=== PATIENT | male | born 1970 | race Caucasian/White ===

== ENCOUNTER 2020-03-30 18:40 | Observation (INO) ==
[2020-03-30 20:36] LABS: Prothrombin Time 11.1 Seconds (9.4-12.1)
[2020-03-30 20:38] LABS: Activated Partial Thrombo Time 36.5 Seconds (26.0-36.0)
[2020-03-30 20:40] LABS: Basophils % 0.5 %; Eosinophils # 0.4 K/mcL (0.0-0.6); Eosinophils % 5.9 %; Hematocrit 35.8 % (37.5-50.1); Hemoglobin 11.6 g/dL (12.9-16.9); Immature Granulocytes % 0.3 % (0-4); Lymphocytes # 1.6 K/mcL (0.6-4.6); Mean Corpuscular HGB Conc 32.4 g/dL (31.6-35.5); Mean Corpuscular Hemoglobin 29.7 pg (28.0-33.3); Mean Corpuscular Volume 91.8 fL (83.0-100.0); Mean Platelet Volume 9.2 fL (9.4-12.4); Monocytes # 0.3 K/mcL (0.0-1.3); Monocytes % 4.5 %; Neutrophils # 4.1 K/mcL (1.6-8.9); Platelet Count 244 K/mcL (140-400); Red Cell Distribution Width 13.7 % (11.5-14.5); Segmented Neutrophils % 63.8 %; White Blood Count 6.4 K/mcL (4.3-11.1)
[2020-03-30 20:44] LABS: Creatine Kinase 83 Units/L (30-223); Lipase 48 Units/L (11-82)
[2020-03-30 21:11] LABS: Bacteria,Urine Few per hpf (None-Few); Bilirubin,Urine Negative (Negative); Blood,Urine Moderate (Negative); Clarity,Urine Clear (Clear); Color,Urine Colorless (Yellow); Glucose,Urine (UA) 50 mg/dL (Normal); Ketones,Urine Negative (Negative); Leukocyte Esterase,Urine Negative (Negative); Nitrite,Urine Negative (Negative); PH,Urine 6.5 pH Units (5.0-8.0); Protein,Urine >=300 mg/dL (Neg-Trace); RBC,Urine 30-50 per hpf (0-3); Specific Gravity,Urine 1.012 (1.010-1.025); Squamous Epithelial Cell,Urine Few per hpf (None-Few); Urobilinogen,Urine Normal (Normal); WBC,Urine 0-3 per hpf (0-3)
[2020-03-30 21:18] LABS: Potassium 4.8 mEq/L (3.5-5.1); Troponin I 0.04 ng/mL (< 0.04)
[2020-03-30] MEDS ORDERED: cloNIDine HCL 0.1 MG TABLET PO ONE (22:40)
[2020-03-30] MEDS ORDERED: Furosemide 40 MG/4 ML VIAL IVP ONE (23:55)
[2020-03-31] MEDS ORDERED: Naloxone 0.4 MG/ML INJ IVP PRN ×2 (00:33→01:43)
[2020-03-31] MEDS: niCARdipine 20 MG/200 ML MLS IVC SCH ×5 (00:43→22:29)
[2020-03-31 05:09] LABS: Hemoglobin 11.3 g/dL (12.9-16.9); Mean Corpuscular HGB Conc 32.3 g/dL (31.6-35.5); Mean Corpuscular Hemoglobin 29.4 pg (28.0-33.3); Mean Corpuscular Volume 91.1 fL (83.0-100.0); Mean Platelet Volume 9.1 fL (9.4-12.4); Platelet Count 238 K/mcL (140-400); Red Blood Count 3.84 M/mcL (4.19-5.50); Red Cell Distribution Width 13.9 % (11.5-14.5); White Blood Count 7.2 K/mcL (4.3-11.1)
[2020-03-31 05:14] LABS: Albumin 3.7 g/dL (3.5-5.7); Bilirubin,Total 0.4 mg/dL (0.3-1.0); Calcium 10.4 mg/dL (8.6-10.3); Magnesium 2.4 mg/dL (1.6-2.6); Phosphorous 8.9 mg/dL (2.7-4.5); Potassium 4.3 mEq/L (3.5-5.1); Total Protein 6.5 g/dL (6.4-8.9)
[2020-03-31 05:15] LABS: Albumin/Globulin Ratio 1.3 (1.1-2.2); Globulin 2.8 g/dL (2.4-3.5)
[2020-03-31 05:30] LABS: Troponin I 0.06 ng/mL (< 0.04)
[2020-03-31] MEDS ORDERED: 0.9 % Sodium Chloride 1,000 ML ONE (07:06)
[2020-03-31] MEDS ORDERED: 0.9 % Sodium Chloride 1,000 ML PRIME SCH (07:15)
[2020-03-31] MEDS ORDERED: 0.9 % Sodium Chloride 250 ML IVC PRN (07:15)
[2020-03-31 09:19] LABS: Hepatitis B Surface Antibody 848.46 mIU/mL
[2020-03-31 09:29] LABS: Hepatitis B Surface Antigen Nonreactive (Nonreactive)
[2020-03-31] MEDS ORDERED: *HR* Alteplase (Cathflo) 2 MG VIAL IVP ONE (11:37)
[2020-03-31] MEDS ORDERED: Acetaminophen 325 MG TABLET PO PRN (11:59)
[2020-03-31] MEDS: cloNIDine HCL 0.1 MG TABLET PO SCH ×2 (12:49→20:40)
[2020-03-31] MEDS ORDERED: cloNIDine HCL 0.1 MG TABLET PO SCH (21:00)
[2020-03-31] MEDS ORDERED: *HR* Labetalol 20 MG/4 ML SYRINGE IVP ONE (23:35)
[2020-04-01] MEDS: Calcium Acetate 667 MG CAPSULE PO SCH ×4 (00:56→16:49)
[2020-04-01 05:30] LABS: Calcium 8.6 mg/dL (8.6-10.3); Potassium 4.3 mEq/L (3.5-5.1)
[2020-04-01] MEDS: cloNIDine HCL 0.1 MG TABLET PO SCH ×3 (07:53→20:09)
[2020-04-01] MEDS: NIFEdipine XL (24 HR) 60 MG TAB.ER.24 PO SCH (10:17)
[2020-04-01] MEDS ORDERED: 0.9 % Sodium Chloride 250 ML IVC PRN (11:02)
[2020-04-01] MEDS ORDERED: *HR* Heparin 10,000 UNIT/10 ML VIAL IV PRN (11:02)
[2020-04-01] MEDS: *HR* Heparin 5,000 UNIT/ML VIAL SQ SCH (20:09)
[2020-04-02] MEDS: *HR* Heparin 5,000 UNIT/ML VIAL SQ SCH (05:39)
[2020-04-02] MEDS ORDERED: 0.9 % Sodium Chloride 250 ML IVC PRN (06:53)
[2020-04-02] MEDS ORDERED: *HR* Heparin 10,000 UNIT/10 ML VIAL IV PRN (07:11)
[2020-04-02 08:46] LABS: Basophils % 0.5 %; Eosinophils # 0.6 K/mcL (0.0-0.6); Eosinophils % 9.2 %; Hematocrit 35.3 % (37.5-50.1); Hemoglobin 11.3 g/dL (12.9-16.9); Immature Granulocytes % 0.3 % (0-4); Lymphocytes % 32.3 %; Mean Corpuscular Hemoglobin 29.1 pg (28.0-33.3); Mean Platelet Volume 8.9 fL (9.4-12.4); Monocytes # 0.2 K/mcL (0.0-1.3); Monocytes % 3.4 %; Neutrophils # 3.4 K/mcL (1.6-8.9); Platelet Count 222 K/mcL (140-400); Red Blood Count 3.88 M/mcL (4.19-5.50); Red Cell Distribution Width 13.6 % (11.5-14.5); Segmented Neutrophils % 54.3 %; White Blood Count 6.2 K/mcL (4.3-11.1)
[2020-04-02] MEDS: Calcium Acetate 667 MG CAPSULE PO SCH ×2 (08:57→12:34)
[2020-04-02] MEDS ORDERED: Nicotine 21 MG PATCH.TD24 TD SCH (09:00)
[2020-04-02 09:05] LABS: Calcium 9.7 mg/dL (8.6-10.3); Magnesium 2.3 mg/dL (1.6-2.6); Phosphorous 6.7 mg/dL (2.7-4.5); Potassium 4.9 mEq/L (3.5-5.1)
[2020-04-02] MEDS ORDERED: FLU Vac QV 20-21 (6Month+)/PF 0.5 ML SYRINGE IM ONE (10:26)
[2020-04-02] MEDS: cloNIDine HCL 0.1 MG TABLET PO SCH (11:20)
[2020-04-02] MEDS: NIFEdipine XL (24 HR) 60 MG TAB.ER.24 PO SCH (11:20)
[2020-04-02 12:53] VITALS: BP 204/125
[2020-04-02 17:56] LABS: Adenovirus Not Detected (Not Detect); Bordetella Pertussis Not Detected (Not Detect); Chlamydophila pneumoniae Not Detected (Not Detect); Coronavirus 229E Not Detected (Not Detect); Coronavirus HKU1 Not Detected (Not Detect); Coronavirus NL63 Not Detected (Not Detect); Coronavirus OC43 Not Detected (Not Detect); Human Metapneumovirus Not Detected (Not Detect); Human Rhinovirus/Enterovirus Not Detected (Not Detect); Influenza A Subtype 2009 H1 Not Detected (Not Detect); Influenza B Not Detected (Not Detect); Mycoplasma pneumoniae Not Detected (Not Detect); Parainfluenza Virus 1 Not Detected (Not Detect); Parainfluenza Virus 2 Not Detected (Not Detect); Parainfluenza Virus 3 Not Detected (Not Detect); Parainfluenza Virus 4 Not Detected (Not Detect); Respiratory Syncytial Virus Not Detected (Not Detect); SARS-CoV-2 Not Detected (Not Detect)
== END 2020-04-02 13:58 | disposition home or self-care (01) ==
LOC: 2NNU 18:40 → EMEROOARM 18:40 → SUATTDRO 03-31 00:20 → 2NNU 03-31 01:11 → 2ANU 04-01 18:49
PROVIDERS: ADMIT Internal Medicine; ATTEND Pharmacist

== ENCOUNTER 2020-07-01 00:39 | Observation (INO) ==
[2020-07-01 01:32] LABS: Basophils % 0.4 %; Eosinophils # 0.6 K/mcL (0.0-0.6); Hematocrit 28.2 % (37.5-50.1); Immature Granulocytes % 0.3 % (0-4); Lymphocytes # 1.5 K/mcL (0.6-4.6); Mean Corpuscular HGB Conc 31.9 g/dL (31.6-35.5); Mean Corpuscular Hemoglobin 31.6 pg (28.0-33.3); Mean Corpuscular Volume 98.9 fL (83.0-100.0); Mean Platelet Volume 9.8 fL (9.4-12.4); Monocytes # 0.5 K/mcL (0.0-1.3); Neutrophils # 7.6 K/mcL (1.6-8.9); Platelet Count 240 K/mcL (140-400); Red Blood Count 2.85 M/mcL (4.19-5.50); Red Cell Distribution Width 14.1 % (11.5-14.5); Segmented Neutrophils % 73.3 %; White Blood Count 10.3 K/mcL (4.3-11.1)
[2020-07-01 02:02] LABS: BUN/Creatinine Ratio 4 (6-26); Blood Urea Nitrogen 30 mg/dL (6-20); Calcium 8.5 mg/dL (8.6-10.3); Carbon Dioxide 23 mEq/L (23-29); Chloride 103 mEq/L (98-107); Glucose 92 mg/dL (70-105); Magnesium 2.4 mg/dL (1.6-2.6); Osmolality,Calculated 296 (280-300); Phosphorous 7.8 mg/dL (2.7-4.5); Potassium 4.5 mEq/L (3.5-5.1); Sodium 140 mEq/L (136-145); Troponin I < 0.03 ng/mL (< 0.04); eGFR For African Americans 10 (> 60); eGFR For Non-African Americans 9 (> 60)
[2020-07-01] MEDS ORDERED: Naloxone 0.4 MG/ML INJ IVP PRN (03:36)
[2020-07-01] MEDS ORDERED: Perflutren Lipid Microsphere 1.3 ML in 0.9 % Sodium Chloride 8.7 ML IVP PRN (03:45)
[2020-07-01] MEDS ORDERED: 0.9 % Sodium Chloride 250 ML IVC PRN (06:46)
[2020-07-01] MEDS: Acetaminophen 325 MG TABLET PO PRN ×2 (06:53→15:59)
[2020-07-01] MEDS ORDERED: 0.9 % Sodium Chloride 1,000 ML PRIME SCH (07:00)
[2020-07-01 07:04] LABS: Bilirubin,Urine Negative (Negative); Blood,Urine Small (Negative); Clarity,Urine Clear (Clear); Color,Urine Light-Yellow (Yellow); Glucose,Urine (UA) 30 mg/dL (Normal); Ketones,Urine Negative (Negative); Leukocyte Esterase,Urine Negative (Negative); Mucus,Urine Few per lpf (None-Few); Nitrite,Urine Negative (Negative); Protein,Urine >=300 mg/dL (Neg-Trace); RBC,Urine 15-30 per hpf (0-3); Specific Gravity,Urine 1.014 (1.010-1.025); Squamous Epithelial Cell,Urine Few per hpf (None-Few); Urobilinogen,Urine Normal (Normal); WBC,Urine 0-3 per hpf (0-3)
[2020-07-01 07:21] LABS: Amphetamine Screen,Urine Negative ng/mL (Cutoff=1000); Barbiturate Screen,Urine Negative ng/mL (Cutoff=200); Benzodiazepines Screen,Urine Negative ng/mL (Cutoff=200); Cannabinoid Screen,Urine Positive ng/mL (Cutoff = 50); Cocaine Screen,Urine Negative ng/mL (Cutoff= 300); Opiate Screen,Urine Negative ng/mL (Cutoff=300); Phencyclidine Screen,Urine Negative ng/mL (Cutoff=25)
[2020-07-01] MEDS ORDERED: *HR* OxyCODONE/APAP 5/325 TABLET PO ONE (09:01)
[2020-07-01 09:55] LABS: Magnesium 2.3 mg/dL (1.6-2.6); Phosphorous 6.5 mg/dL (2.7-4.5)
[2020-07-01] MEDS ORDERED: *HR* Heparin 10,000 UNIT/10 ML VIAL ONE (13:46)
[2020-07-01] MEDS: cloNIDine HCL 0.1 MG TABLET PO SCH ×2 (16:45→21:43)
[2020-07-01] MEDS ORDERED: Amoxicillin/Clavulanate 500 MG TABLET PO SCH (17:00)
[2020-07-01] MEDS: Calcium Acetate 667 MG CAPSULE PO SCH (17:04)
[2020-07-01] MEDS: carvediloL 25 MG TABLET PO SCH (17:04)
[2020-07-01] MEDS: Doxycycline 100 MG CAPSULE PO SCH (19:31)
[2020-07-01] MEDS ORDERED: cloNIDine HCL 0.1 MG TABLET PO SCH (21:00)
[2020-07-02 05:25] LABS: Basophils % 0.4 %; Eosinophils # 0.6 K/mcL (0.0-0.6); Eosinophils % 7.3 %; Hematocrit 29.9 % (37.5-50.1); Hemoglobin 9.4 g/dL (12.9-16.9); Immature Granulocytes % 0.4 % (0-4); Lymphocytes # 1.3 K/mcL (0.6-4.6); Lymphocytes % 15.6 %; Mean Corpuscular HGB Conc 31.4 g/dL (31.6-35.5); Mean Corpuscular Hemoglobin 30.5 pg (28.0-33.3); Mean Corpuscular Volume 97.1 fL (83.0-100.0); Mean Platelet Volume 9.5 fL (9.4-12.4); Monocytes # 0.5 K/mcL (0.0-1.3); Monocytes % 5.9 %; Neutrophils # 5.7 K/mcL (1.6-8.9); Platelet Count 242 K/mcL (140-400); Red Blood Count 3.08 M/mcL (4.19-5.50); Red Cell Distribution Width 13.6 % (11.5-14.5); Segmented Neutrophils % 70.4 %; White Blood Count 8.1 K/mcL (4.3-11.1)
[2020-07-02 05:41] LABS: Albumin 3.7 g/dL (3.5-5.7); Phosphorous 5.5 mg/dL (2.7-4.5); Potassium 4.5 mEq/L (3.5-5.1)
[2020-07-02] MEDS ORDERED: 0.9 % Sodium Chloride 250 ML IVC PRN (07:14)
[2020-07-02] MEDS ORDERED: 0.9 % Sodium Chloride 1,000 ML PRIME SCH (07:15)
[2020-07-02] MEDS ORDERED: *HR* OxyCODONE/APAP 5/325 TABLET PO ONE (08:34)
[2020-07-02] MEDS: Doxycycline 100 MG CAPSULE PO SCH (09:04)
[2020-07-02] MEDS: Calcium Acetate 667 MG CAPSULE PO SCH ×2 (09:04→12:54)
[2020-07-02 12:33] VITALS: BP 199/121
[2020-07-02] MEDS: carvediloL 25 MG TABLET PO SCH (12:54)
[2020-07-02] MEDS: cloNIDine HCL 0.1 MG TABLET PO SCH (12:54)
== END 2020-07-02 12:57 | disposition home or self-care (01) ==
LOC: CDU 00:39 → EMEROOARM 00:39 → SUATTDRO 03:29 → CDU 03:46
PROVIDERS: ADMIT Family Medicine; ATTEND Internal Medicine

== ENCOUNTER 2020-09-23 00:36 | Observation (INO) ==
[2020-09-23] MEDS ORDERED: Furosemide 40 MG/4 ML VIAL IVP ONE ×2 (00:53→07:00)
[2020-09-23 01:37] LABS: Basophils % 0.3 %; Eosinophils # 0.7 K/mcL (0.0-0.6); Eosinophils % 6.3 %; Hematocrit 30.1 % (37.5-50.1); Hemoglobin 9.8 g/dL (12.9-16.9); Immature Granulocytes % 0.6 % (0-4); Lymphocytes # 1.7 K/mcL (0.6-4.6); Lymphocytes % 14.7 %; Mean Corpuscular HGB Conc 32.6 g/dL (31.6-35.5); Mean Corpuscular Hemoglobin 31.9 pg (28.0-33.3); Mean Platelet Volume 9.3 fL (9.4-12.4); Monocytes # 0.5 K/mcL (0.0-1.3); Monocytes % 4.6 %; Neutrophils # 8.7 K/mcL (1.6-8.9); Platelet Count 233 K/mcL (140-400); Red Blood Count 3.07 M/mcL (4.19-5.50); Red Cell Distribution Width 13.9 % (11.5-14.5); Segmented Neutrophils % 73.5 %; White Blood Count 11.8 K/mcL (4.3-11.1)
[2020-09-23 01:58] LABS: Albumin 3.6 g/dL (3.5-5.7); Albumin/Globulin Ratio 1.2 (1.1-2.2); Bilirubin,Direct 0.1 mg/dL (0.0-0.2); Bilirubin,Indirect 0.2 mg/dL (0.0-1.0); Bilirubin,Total 0.3 mg/dL (0.3-1.0); Calcium 8.9 mg/dL (8.6-10.3); Potassium 4.2 mEq/L (3.5-5.1); Total Protein 6.6 g/dL (6.4-8.9); Troponin I 0.03 ng/mL (< 0.04)
[2020-09-23] MEDS ORDERED: Isovue-370 500 ML BOTTLE IVP ONE (02:01)
[2020-09-23] MEDS: Nitroglycerin 0.4 MG TAB.SUBL SL SCH ×2 (02:27→20:47)
[2020-09-23] MEDS ORDERED: niCARdipine 20 MG/200 ML MLS IVC SCH (02:45)
[2020-09-23] MEDS: niCARdipine 20 MG/200 ML MLS IVC SCH ×3 (02:59→20:47)
[2020-09-23] MEDS ORDERED: Naloxone 0.4 MG/ML INJ IVP PRN (04:28)
[2020-09-23] MEDS: *HR* Heparin 5,000 UNIT/ML VIAL SQ SCH ×2 (05:28→16:29)
[2020-09-23] MEDS ORDERED: 0.9 % Sodium Chloride 250 ML IVC PRN (07:20)
[2020-09-23] MEDS ORDERED: 0.9 % Sodium Chloride 1,000 ML PRIME SCH (07:30)
[2020-09-23] MEDS: cloNIDine HCL 0.1 MG TABLET PO SCH (09:29)
[2020-09-23] MEDS: carvediloL 25 MG TABLET PO SCH ×2 (09:29→16:28)
[2020-09-23] MEDS: Acetaminophen 325 MG TABLET PO PRN ×2 (09:34→18:03)
[2020-09-24 01:52] LABS: White Blood Count 8.2 K/mcL (4.3-11.1)
[2020-09-24 01:53] LABS: Basophils % 0.5 %; Eosinophils # 0.6 K/mcL (0.0-0.6); Eosinophils % 6.8 %; Hematocrit 30.9 % (37.5-50.1); Hemoglobin 10.1 g/dL (12.9-16.9); Immature Granulocytes % 0.4 % (0-4); Lymphocytes # 1.7 K/mcL (0.6-4.6); Lymphocytes % 20.7 %; Mean Corpuscular HGB Conc 32.7 g/dL (31.6-35.5); Mean Corpuscular Hemoglobin 31.8 pg (28.0-33.3); Mean Corpuscular Volume 97.2 fL (83.0-100.0); Mean Platelet Volume 9.2 fL (9.4-12.4); Monocytes # 0.4 K/mcL (0.0-1.3); Monocytes % 5.4 %; Neutrophils # 5.4 K/mcL (1.6-8.9); Platelet Count 230 K/mcL (140-400); Red Blood Count 3.18 M/mcL (4.19-5.50); Red Cell Distribution Width 13.6 % (11.5-14.5); Segmented Neutrophils % 66.2 %
[2020-09-24 02:11] LABS: Albumin 3.7 g/dL (3.5-5.7); Albumin/Globulin Ratio 1.2 (1.1-2.2); Bilirubin,Total 0.5 mg/dL (0.3-1.0); Calcium 9.1 mg/dL (8.6-10.3); Globulin 3.1 g/dL (2.4-3.5); Potassium 3.7 mEq/L (3.5-5.1); Total Protein 6.8 g/dL (6.4-8.9)
[2020-09-24] MEDS: *HR* Heparin 5,000 UNIT/ML VIAL SQ SCH (04:49)
[2020-09-24] MEDS ORDERED: 0.9 % Sodium Chloride 250 ML IVC PRN (07:12)
[2020-09-24 12:50] VITALS: BP 154/74
[2020-09-24] MEDS: carvediloL 25 MG TABLET PO SCH (12:55)
[2020-09-24] MEDS: cloNIDine HCL 0.1 MG TABLET PO SCH (12:55)
== END 2020-09-24 13:31 | disposition home or self-care (01) ==
LOC: EMEROOARM 00:36 → 2ANU 00:36 → SUATTDRO 04:19 → 2ANU 04:45
PROVIDERS: ADMIT Family Medicine; ATTEND Internal Medicine